=== PATIENT | male | born 1980 | race Caucasian/White ===

== ENCOUNTER 2018-12-03 11:13 | Emergency (ER) | payer MEDICAID ==
[~2018-12-03] VITALS: Ht 177.8 cm; Wt 85.0 kg
--- NOTE | 2018-12-03 11:58 | NUR ---
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
[2018-12-03] MEDS ORDERED: DIPHENHYDRAMINE 25 MG CAPSULE ONE (12:21)
[2018-12-03] MEDS ORDERED: ONDANSETRON 2MG/ML, 2ML ONE (12:21)
[2018-12-03] MEDS ORDERED: ONDANSETRON 2MG/ML, 2ML IVPush ONE (12:30)
[2018-12-03] MEDS ORDERED: SODIUM CHLORIDE 0.9% 1,000ML IVBOLUS ONE ×2 (12:30→15:00)
[2018-12-03] MEDS ORDERED: SODIUM CHLORIDE FLUSH 10ML SYR IVF ONE (12:30)
[2018-12-03] MEDS ORDERED: DICYCLOMINE 20 MG TABLET PO ONE (12:30)
--- NOTE | 2018-12-03 12:40 | NUR ---
"FOR THE LAST 5 DAYS I'VE HAD DIARRHEA AND AN UPSET STOMACH". Suspects food poisoning. +chills, not recorded temp Hr 108 in triage-otherwise appears well. Placed on cardiac nurse- to place piv-medicate
[2018-12-03 12:41] LABS: BASOPHILS % (AUTO) 0 % (0-1); EOSINOPHILS % (AUTO) 0 % (1-7); LYMPHOCYTES # (AUTO) 0.71 x10^3/uL (1-3.4); LYMPHOCYTES % (AUTO) 18 % (22-44); MD NO; MEAN CORPUSCULAR HEMOGLOBIN 30.5 pg (27.5-34.5); MEAN CORPUSCULAR HGB CONC 33.7 g/dL (33.2-36.2); MEAN CORPUSCULAR VOLUME 90.5 fL (81-97); MEAN PLATELET VOLUME 8.1 fL (7.4-10.4); MONOCYTES # (AUTO) 0.51 x10^3/uL (0.2-0.8); MONOCYTES % (AUTO) 13 % (2-9); NEUTROPHILS # (AUTO) 2.75 x10^3/uL (1.8-6.8); NEUTROPHILS % (AUTO) 69 % (42-75); PLATELET COUNT 362 x10^3/uL (130-400); RED BLOOD COUNT 4.15 x10^6/uL (4.38-5.82); RED CELL DISTRIBUTION WIDTH 13.2 % (9.4-14.8)
[2018-12-03 12:48] LABS: ALANINE AMINOTRANSFERASE 29 U/L (12-78); ALBUMIN 3.7 g/dL (3.4-5.0); ANION GAP 9 mmol/L (5-15); CALCIUM 9.1 mg/dL (8.5-10.1); CHLORIDE 106 mmol/L (98-107); CREATININE 1.94 mg/dL (0.7-1.3)
[2018-12-03 12:50] LABS: ALKALINE PHOSPHATASE 48 U/L (45-117); BILIRUBIN,TOTAL 0.6 mg/dL (0.2-1.0)
--- NOTE | 2018-12-03 13:03 | NUR ---
Provider made aware of cr/K. Provider considering tx
--- NOTE | 2018-12-03 13:10 | NUR ---
Ct changed from con to w/out con d/t renal function Provider to replete k patient up to attempt to void Patient provided with po fluids after clarification w/ provider
--- NOTE | 2018-12-03 13:24 | NUR ---
ivf complete (1l ns) Patient up to restroom to void-concentrated urine sample obtained-sent to lab Vitals slightly improved on residential monitor hr now 103
[2018-12-03] MEDS ORDERED: POTASSIUM CHLORIDE 20 MEQ TAB.ER.PRT PO ONE (13:30)
[2018-12-03] MEDS ORDERED: POTASSIUM CHLORIDE 20 MEQ TAB.ER.PRT ONE (13:31)
--- NOTE | 2018-12-03 13:31 | NUR ---
ordered hosp bed
[2018-12-03 13:39] LABS: MICROSCOPIC INDICATED
[2018-12-03 13:44] LABS: CULTURE INDICATED? NO
--- NOTE | 2018-12-03 13:49 | NUR ---
TO CT SCAN
--- NOTE | 2018-12-03 14:05 | NUR ---
BREAK RN: PT BACK FROM IMAGING. PT RESTING ON GURNEY. NO ACUTE DISTRESS NOTED. AWAITING RESULTS.
--- NOTE | 2018-12-03 14:23 | NUR ---
BREAK RN: BEDSIDE REPORT TO CYNDY MINA.
[2018-12-03] MEDS ORDERED: DEXAMETHASONE 4 MG/ML, 1ML IVPush ONE (15:00)
[2018-12-03] MEDS ORDERED: DEXAMETHASONE 4 MG/ML, 5ML ONE (15:07)
[2018-12-03 15:27] VITALS: BP 115/73
== END 2018-12-03 15:29 | disposition home or self-care (01) ==
LOC: ED 13:50
DX: A09 Infectious gastroenteritis and colitis, unspecified (principal); F20.9 Schizophrenia, unspecified; I10 Essential (primary) hypertension; F32.9 Major depressive disorder, single episode, unspecified; F17.200 Nicotine dependence, unspecified, uncomplicated
CPT/HCPCS: 36415; 74176; 80053; 81001; 83690; 85025; 93005; 96361; 96374; 96375; 99284; J1100; J2405; J7030